=== PATIENT | male | born 1990 | race Caucasian/White ===

== ENCOUNTER 2023-06-01 16:53 | Emergency (ER) | payer MEDICAID ==
[~2023-06-01] VITALS: Ht 177.8 cm; Wt 95.0 kg
[2023-06-01 17:34] VITALS: BP 175/133; PULSE 83; RESP 20; TEMP 98.2; O2SAT 98
[2023-06-01] MEDS ORDERED: GUAI-741 MT (21:36)
[2023-06-01] MEDS ORDERED: ALBU6.7H3 INH (21:38)
[2023-06-01] MEDS ORDERED: PROM6.2525 MT (22:01)
== END 2023-06-01 22:14 | disposition home or self-care (01) ==
LOC: ER 17:02
DX: J06.9 Acute upper respiratory infection, unspecified (principal)
CPT/HCPCS: 71045; 99283